=== PATIENT | male | born 1970 | race Caucasian/White ===

== ENCOUNTER 2019-03-01 20:28 | Emergency (ER) | payer MEDICAID, OTHER ==
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
[2019-03-01 21:59] VITALS: BP 119/86
== END 2019-03-01 21:59 | disposition home or self-care (01) ==
DX: M79.671 Pain in right foot (principal); M25.521 Pain in right elbow; V03.10XA Pedestrian on foot injured in collision with car, pick-up truck or van in traffic accident, initial encounter; Y99.9 Unspecified external cause status